=== PATIENT | female | born 1935 | race Caucasian/White ===

== ENCOUNTER → 2018-05-23 | Outpatient (CLI) | payer MEDICARE, BC ==
--- NOTE | 2018-05-23 11:12 | CARD ---
MR#: [id number] Date of Study: 05/23/2018 Ordering Physician: RAMON SCHMITZ, Referring Physician: RAMON SCHMITZ, Tech: SETH Vogel APPROVED REPORT EXAM: Two-dimensional and M-mode echocardiogram with Doppler and color Doppler. Other Information Quality : AverageHR: 74bpm INDICATION Aortic Valve Disease Hypertension/HCVD 2D DIMENSIONS RVDd3.2 (2.9-3.5cm)Left Atrium(2D)4.0 (1.6-4.0cm) IVSd1.4 (0.7-1.1cm)Aortic Root(2D)3.1 (2.0-3.7cm) LVDd4.5 (3.9-5.9cm)LVOT Diameter2.1 (1.8-2.4cm) PWd1.8 (0.7-1.1cm)LVDs3.7 (2.5-4.0cm) FS (%) 16.4 %SV31.6 ml LVEF(%)34.7 (>50%) Aortic Valve AoV Peak Quentin.153.4cm/sAoV VTI38.4cm AO Peak GR.9.4mmHgLVOT Peak Quentin.92.9cm/s LVOT VTI 22.49cmAO Mean GR.7mmHg BEVERLEY (VMAX)2.64mm7NAB (VTI)2.12cm2 Mitral Valve MV E Vtxtigbe101.8cm/sMV DECEL [id number] MV A Rgfrcbfz17.5cm/sE/A Ratio1.4 Pulmonary Valve PV Peak Egxuomrf279.3cm/sPV Peak Grad.5mmHg Tricuspid Valve TR P. Bkcyoinu230ki/sRAP [id number] TR Peak Gr.50dnXyNWXV37mfPw Pulmonary Vein S1 Slmzrvap34.4cm/sD2 Yalhivel01.4cm/s LEFT VENTRICLE The left ventricle is normal size. There is mild to moderate concentric left ventricular hypertrophy. LV systolic function is low normal. EF 50-55% There is normal LV segmental wall motion. The left curtis tricular diastolic function and filling is normal for age. RIGHT VENTRICLE The right ventricle is normal size. The right ventricular systolic function is normal. ATRIA The left atrium is borderline dilated. The right atrium size is normal. The interatrial septum is int act with no evidence for an atrial septal defect or patent foramen ovale as noted on 2-D or Doppler i maging. AORTIC VALVE The aortic valve is not well visualized. Doppler and Color Flow revealed no significant aortic regurg itation. There is no significant aortic valvular stenosis. There is no aortic valvular vegetation. MITRAL VALVE The mitral valve is thickened but opens well. There is no evidence of mitral valve prolapse. There is no mitral valve stenosis. Doppler and Color-flow revealed mild mitral regurgitation. TRICUSPID VALVE The tricuspid valve leaflets are thickened , but open well. Doppler and Color Flow revealed mild tric uspid regurgitation. There is mild pulmonary hypertension. The PA pressure was estimated at 36 mmHg. There is no tricuspid valve prolapse or vegetation. There is no tricuspid valve stenosis. PULMONIC VALVE The pulmonic valve is not well visualized. Doppler and Color Flow revealed trace pulmonic valvular re gurgitation. There is no pulmonic valvular stenosis. GREAT VESSELS The aortic root is normal size. The aortic root displays mild to moderate sclerocalcific changes of t he aortic root. The IVC is dilated. The IVC collapses <50% with inspiration. PERICARDIAL EFFUSION There is no pleural effusion. There is no evidence of significant pericardial effusion. Critical Notification Critical Value: No <Conclusion> LV systolic function is low normal. EF 50-55% There is normal LV segmental wall motion. Signed by : Ramon Schmitz, Electronically Approved : 05/23/2018 11:12:28
== END | disposition home or self-care (01) ==
LOC: ECHO 10:00
PROVIDERS: ATTEND Internal Medicine Cardiovascular Disease
DX: I08.1 Rheumatic disorders of both mitral and tricuspid valves (principal); I27.20 Pulmonary hypertension, unspecified
CPT/HCPCS: 93306

== ENCOUNTER → 2020-06-18 | Outpatient (CLI) | payer MEDICARE, BC ==
--- NOTE | 2020-06-18 16:25 | RAD ---
KNEE RIGHT 3V 06/18/2020 11:56 AM INDICATION: Soreness of right knee arthroplasty COMPARISON: None available. TECHNIQUE: 3 views of the right knee are provided FINDINGS/ IMPRESSION: Right knee arthroplasty is present with femoral components in expected alignment. No lucency is identified surrounding the femoral component. A spacer appears present. No disruption of the surface of the tibial plateau. No acute fracture is visualized. No significant knee joint effusion. Mild osteopenia. No significant soft tissue abnormality or subcutaneous gas. No radiopaque foreign density. Patellar enthesopathy noted along the superior patella. Electronically signed by: Pamela Mojica MD (06/18/2020 4:22 PM) [id number]
== END | disposition home or self-care (01) ==
LOC: DXRAD 11:43
PROVIDERS: ATTEND Specialist
DX: M76.51 Patellar tendinitis, right knee (principal); M85.88 Other specified disorders of bone density and structure, other site; Z96.651 Presence of right artificial knee joint
CPT/HCPCS: 73562

== ENCOUNTER → 2020-09-30 | Outpatient (CLI) | payer MEDICARE, BC ==
--- NOTE | 2020-09-30 14:37 | RAD ---
EXAM: Chest, 2 views. HISTORY: COPD exacerbation. COMPARISON: None. FINDINGS: 2 views of the chest are obtained. There is diffuse increased interstitial opacity. There i s slight blunting of the catheter angles due to basilar scarring or trace pleural effusions. There is an enlarged cardiac silhouette. There is no pneumothorax. IMPRESSION: 1. Diffuse interstitial opacity likely due to chronic interstitial change. No consolidated infiltrate is seen. 2. Basilar scarring or trace pleural effusions. 3. Cardiomegaly. Electronically signed by: Taylor Mueller MD (09/30/2020 2:34 PM) [id number]
== END ==
LOC: LAB 14:17
PROVIDERS: ATTEND Specialist
DX: Z01.812 Encounter for preprocedural laboratory examination (principal); J44.1 Chronic obstructive pulmonary disease with (acute) exacerbation; Z20.828 Contact with and (suspected) exposure to other viral communicable diseases
CPT/HCPCS: 71046; U0003